=== PATIENT | female | born 1995 | race Caucasian/White ===

== ENCOUNTER 2017-11-03 16:14 | Emergency (ER) | payer OTHER ==
[~2017-11-03] VITALS: Ht 157.5 cm; Wt 90.7 kg
[~2017-11-03 16:14] MED LIST: ERYTHROMYCIN E3.5 G1 OPHTHALMIC; GENTAMICIN SU3 MG/ML OPHTHALMIC; IBUPROFEN 600600 M1 PO; MOBIC15 MG PO; NAPROSYN500 MG PO; NORCO 5-325 TA1 EACH PO; NUVARING VAGIN1 EACH VG
[2017-11-03 17:03] LABS: URINE BILIRUBIN NEGATIVE (Negative); URINE BLOOD NEGATIVE (Negative); URINE CLARITY CLEAR; URINE COLOR YELLOW; URINE GLUCOSE-RANDOM* NEGATIVE (Negative); URINE KETONES NEGATIVE (Negative); URINE LEUKOCYTES-REFLEX NEGATIVE (Negative); URINE NITRITE-REFLEX NEGATIVE (Negative); URINE PROTEIN (DIPSTICK) NEGATIVE (Negative); URINE SPECIFIC GRAVITY 1.015 (1.005-1.035); URINE UROBILINOGEN 0.2 E.U./dl (0.2-1.0)
[2017-11-03 17:12] LABS: AMP/METHAMP Negative (Negative); BARBITURATES Negative (Negative); BENZODIAZEPINES Negative (Negative); COCAINE Negative (Negative); METHADONE Negative (Negative); OPIATES Negative (Negative); PCP Negative (Negative)
[2017-11-03 17:30] LABS: ABSOLUTE NEUTROPHILS 4.1 thou/uL (1.4-8.2); BASOPHILS 0.7 % (0.0-2.0); EOSINOPHILS 1.6 % (0.0-3.0); HEMATOCRIT 37.8 % (37.0-47.0); HEMOGLOBIN 11.9 gm/dL (12.0-15.0); LYMPHOCYTES 36.5 % (24.0-44.0); MCH 22.2 pg (26.0-34.0); MCHC 31.6 g/dL (28.0-37.0); MCV 70.2 fL (80.0-100.0); MONOCYTES 4.6 % (1.0-8.0); PLATELET COUNT 222 thou/uL (150-400); POLYS 56.6 % (36.0-66.0); RBC 5.38 mil/uL (4.20-5.00); RDW 19.7 % (10.5-14.5); WBC 7.2 thou/uL (4.0-11.0)
[2017-11-03 17:39] LABS: ANION GAP 8 mmol/L (7-16); BUN 9 mg/dL (7-18); CALCIUM 8.9 mg/dL (8.5-10.1); CHLORIDE 106 mmol/L (98-107); CO2 28 mmol/L (21-32); CREATININE 0.8 mg/dL (0.6-1.0); GLUCOSE 93 mg/dL (74-106); POTASSIUM 3.9 mmol/L (3.5-5.1); SODIUM 142 mmol/L (136-145)
[2017-11-03 17:45] LABS: SALICYLATE < 2.8 mg/dL (2.8-20.0); SGOT 21 U/L (15-37); SGPT 27 U/L (30-65); TOTAL BILIRUBIN 0.2 mg/dL (<0.1-1.0); TOTAL PROTEIN 7.2 g/dL (6.4-8.2)
[2017-11-03 18:17] LABS: ANISOCYTOSIS 1+; HYPOCHROMASIA 1+; MICROCYTES 1+
[2018-02-25] MEDS ORDERED: ZOFRAN ODT4 M1 PO (17:06)
[2018-07-03] MEDS ORDERED: BENADRYL A12.5 MG/5 PO (23:26)
[2018-07-03] MEDS ORDERED: LIDOCAINE40 MG/1 ML PO (23:26)
== END 2017-11-03 18:33 | disposition home or self-care (01) ==
LOC: ER 16:14
PROVIDERS: Emergency Medicine
DX: F53 Mental and behavioral disorders associated with the puerperium, not elsewhere classified (principal); Z88.0 Allergy status to penicillin

== ENCOUNTER 2017-12-15 18:44 | Emergency (ER) | payer OTHER ==
[~2017-12-15] VITALS: Ht 157.5 cm; Wt 90.7 kg
[2017-12-15] MEDS ORDERED: SERTRALINE HCL50 MG PO (18:51)
[2017-12-15] MEDS ORDERED: IBUPROFEN 800800 M1 PO (19:46)
[2018-02-25] MEDS ORDERED: ZOFRAN ODT4 M1 PO (17:06)
[2018-07-03] MEDS ORDERED: BENADRYL A12.5 MG/5 PO (23:26)
[2018-07-03] MEDS ORDERED: LIDOCAINE40 MG/1 ML PO (23:26)
== END 2017-12-15 20:06 | disposition home or self-care (01) ==
LOC: ER 18:44
DX: J02.9 Acute pharyngitis, unspecified (principal); Z88.0 Allergy status to penicillin

== ENCOUNTER 2019-10-24 14:48 | Emergency (ER) | payer OTHER ==
[~2019-10-24] VITALS: Ht 157.5 cm; Wt 104.3 kg
[~2019-10-24 14:48] MED LIST changes: +BENADRYL A12.5 MG/5 PO; +IBUPROFEN 800800 M1 PO; +LIDOCAINE40 MG/1 ML PO; +SERTRALINE HCL50 MG PO; +ZOFRAN ODT4 M1 PO
[2019-10-24] MEDS ORDERED: NAPROSYN500 M1 PO (17:12)
[2019-10-24] MEDS ORDERED: FLEXERIL PO (17:12)
[2019-10-24 18:15] VITALS: BP 122/74
== END 2019-10-24 18:15 | disposition home or self-care (01) ==
LOC: ER 14:48
DX: S63.591A Other specified sprain of right wrist, initial encounter (principal); S13.4XXA Sprain of ligaments of cervical spine, initial encounter; S80.01XA Contusion of right knee, initial encounter; S09.90XA Unspecified injury of head, initial encounter; Z88.0 Allergy status to penicillin; V89.2XXA Person injured in unspecified motor-vehicle accident, traffic, initial encounter; Y93.89 Activity, other specified; Y92.89 Other specified places as the place of occurrence of the external cause; Y99.8 Other external cause status

== ENCOUNTER 2019-11-06 23:44 | Emergency (ER) | payer OTHER ==
[~2019-11-06] VITALS: Ht 157.5 cm; Wt 99.8 kg
[~2019-11-06 23:44] MED LIST changes: +FLEXERIL PO; +NAPROSYN500 M1 PO
[2019-11-07] MEDS ORDERED: KEFLEX500 M1 PO (00:41)
[2019-11-07 01:00] VITALS: BP 151/66
== END 2019-11-07 01:00 | disposition home or self-care (01) ==
LOC: ER 23:44
DX: N64.59 Other signs and symptoms in breast (principal); Z88.0 Allergy status to penicillin